=== PATIENT | female | born 1985 | race Caucasian/White ===

== ENCOUNTER 2021-05-02 00:01 | Emergency (ER) | payer OTHER ==
[2021-05-02 00:13] VITALS: BMI 31.7
[2021-05-02] MEDS ORDERED: METOCLOPRAMIDE HCL INJECTION 10 MG/2 ML VIAL IVPB ONE (01:44)
[2021-05-02] MEDS ORDERED: SODIUM CHLORIDE 0.9% 500 ML INFUS.BAG IV ONE (01:44)
[2021-05-02] MEDS ORDERED: ACETAMINOPHEN 1000 MG/100 ML BAG IVPB ONE (01:45)
[2021-05-02] MEDS ORDERED: ACETAMINOPHEN INJECTION 100 ML IVPB ONE (02:14)
[2021-05-02] MEDS ORDERED: METOCLOPRAMIDE HCL INJECTION 10 MG/2 ML VIAL ONE (02:14)
[2021-05-02 03:14] VITALS: TEMP 98.6
[2021-05-02 06:23] VITALS: BP 105/40; PULSE 68
== END 2021-05-02 06:23 | disposition home or self-care (01) ==
LOC: JER 00:01
PROC: 3E033NZ Introduction of Analgesics, Hypnotics, Sedatives into Peripheral Vein, Percutaneous Approach (ICD-10-PCS; principal; 2021-05-02)
PROC: 3E033GC Introduction of Other Therapeutic Substance into Peripheral Vein, Percutaneous Approach (ICD-10-PCS; 2021-05-02)
DX: S09.93XA Unspecified injury of face, initial encounter (principal); R51.9 Headache, unspecified
CPT/HCPCS: 70450-TC; 70486-TC; 72125-TC; 96374; 96375; 99285-25; J0131